=== PATIENT | female | born 2000 | race Caucasian/White ===

== ENCOUNTER 2020-02-18 07:49 | Emergency (ER) | payer OTHER ==
[~2020-02-18] VITALS: Ht 165.1 cm; Wt 54.4 kg
[~2020-02-18 07:49] MED LIST: NO TOMA MEDICAMENTOS
[2020-02-18] MEDS ORDERED: PEPCID AC20 MG PO (14:42)
== END 2020-02-18 17:03 | disposition home or self-care (01) ==
LOC: ER 07:49
DX: K29.70 Gastritis, unspecified, without bleeding (principal); R07.89 Other chest pain; R10.13 Epigastric pain